=== PATIENT | female | born 1935 | race Hispanic/Latino ===

== ENCOUNTER 2017-09-11 19:35 | Observation (INO) | payer OTHER ==
[~2017-09-11] VITALS: Ht 157.5 cm; Wt 73.2 kg
[~2017-09-11 19:35] MED LIST: ALENDRONATE PO; AMLO1CAP6 PO; HYDR-2132 PO; METO100T14 PO
[2017-09-11] MEDS ORDERED: NITROGLYCERIN 0.4 MG SL TAB SL ONE (19:50)
[2017-09-11] MEDS ORDERED: ASPIRIN 81MG TAB.CHEW ONE (19:50)
[2017-09-11 19:54] LABS: BASOPHILS % (AUTO) 0.9 % (0.0-5.0); EOSINOPHILS % (AUTO) 2.4 % (0.0-8.0); HEMATOCRIT 41.4 % (36-48); LYMPHOCYTES % (AUTO) 41.7 % (21.0-51.0); MEAN CORPUSCULAR HEMOGLOBIN 29.9 pg (27.0-33.0); MEAN CORPUSCULAR HGB CONC 33.3 g/dL (32.0-36.0); MEAN CORPUSCULAR VOLUME 89.9 fL (79-99); MONOCYTES % (AUTO) 9.8 % (3.0-13.0); NEUTROPHILS % (AUTO) 45.2 % (40.0-77.0); PLATELET COUNT (AUTO) 246 K/uL (130-400); WHITE BLOOD COUNT (AUTO) 7.6 K/uL (4.8-10.8)
[2017-09-11 20:13] LABS: POTASSIUM 4.3 mmol/L (3.5-5.1)
[2017-09-11 20:18] LABS: ALBUMIN 3.9 g/dL (3.5-5.0); BILIRUBIN,TOTAL 0.3 mg/dL (0.2-1.0); TOTAL PROTEIN, SERUM 7.8 g/dL (6.0-8.3)
[2017-09-12 03:15] VITALS: BP 158/61
[2017-09-12] MEDS ORDERED: SIMVAST (03:33)
[2017-09-12] MEDS ORDERED: LIDOCAINE HCL-MPF 1% 2ML VIAL IJ PRN (04:00)
[2017-09-12] MEDS ORDERED: POTASSIUM CHLORIDE 10% ELIXIR 20 MEQ/15 ML UDCUP PO PRN ×2 (04:00)
[2017-09-12] MEDS ORDERED: LIDOCAINE HCL-MPF 1% 2ML VIAL IVP PRN (04:00)
[2017-09-12] MEDS ORDERED: POTASSIUM CHLORIDE 20MEQ/100ML 100 ML IV PRN ×2 (04:00)
[2017-09-12] MEDS ORDERED: POTASSIUM CHLORIDE 20 MEQ ERTAB PO PRN ×2 (04:00)
[2017-09-12] MEDS ORDERED: DEXTROSE 50%-WATER 50 ML DISP.SYRIN IV PRN (04:15)
[2017-09-12] MEDS ORDERED: ONDANSETRON HCL 4 MG/2 ML VIAL IVP PRN (04:15)
[2017-09-12] MEDS ORDERED: NITROGLYCERIN 0.4 MG SL TAB SL PRN (04:15)
[2017-09-12] MEDS ORDERED: CLONIDINE HCL 0.1 MG TABLET PO PRN (04:15)
[2017-09-12] MEDS ORDERED: LACTULOSE 20 GM/30 ML UDCUP PO PRN (04:15)
[2017-09-12] MEDS ORDERED: GLUCAGON 1MG KIT 1 MG ML IM PRN (04:15)
[2017-09-12] MEDS ORDERED: ACETAMINOPHEN 325 MG TAB PO PRN ×2 (04:15)
[2017-09-12 06:06] LABS: MEAN CORPUSCULAR HEMOGLOBIN 31.4 pg (27.0-33.0); MEAN CORPUSCULAR HGB CONC 35.2 g/dL (32.0-36.0); MEAN CORPUSCULAR VOLUME 89.2 fL (79-99); PLATELET COUNT (AUTO) 222 K/uL (130-400); RED BLOOD CELL COUNT(AUTO) 4.26 MIL/uL (4.00-5.50); WHITE BLOOD COUNT (AUTO) 6.8 K/uL (4.8-10.8)
[2017-09-12 06:37] LABS: CARBON DIOXIDE 27 mmol/L (21-32); CHLORIDE 104 mmol/L (101-111); CHOLESTEROL 146 mg/dL (<200); CREATINE KINASE MB < 0.5 ng/mL (0.5-3.6); CREATINE KINASE, TOTAL 31 U/L (21-232); CREATININE 0.8 mg/dL (0.5-1.5); GLOMERULAR FILTR. RATE CALC 73 mL/min (>60); GLUCOSE,RANDOM 96 mg/dL (70-105); HDL CHOLESTEROL 83 mg/dL (35-85); LDL DIRECT 68 mg/dL (0-99); MYOGLOBIN 38 ng/mL (10-92); POTASSIUM 4.1 mmol/L (3.5-5.1); SODIUM SERUM 139 mmol/L (136-145); TRIGLYCERIDES 67 mg/dL (30-200); TROPONIN I < 0.04 ng/mL (0.00-0.06); UREA NITROGEN, BLOOD 12 mg/dL (7-18)
[2017-09-12] MEDS ORDERED: INSULIN R PO SS1 SQ SCH (07:30)
[2017-09-12 08:08] VITALS: BP 125/67
[2017-09-12] MEDS ORDERED: ASPIRIN 325 MG TABLET PO SCH (09:00)
[2017-09-12] MEDS ORDERED: METOPROLOL TARTRATE 25 MG TAB PO SCH (09:00)
[2017-09-12] MEDS ORDERED: FAMOTIDINE 20MG TAB 20 MG TAB PO SCH (09:00)
== END 2017-09-12 12:10 | disposition home or self-care (01) ==
LOC: EDH 19:35 → EDHIP 23:30 → 4BH 09-12 02:15
PROVIDERS: ADMIT Internal Medicine; ATTEND Internal Medicine
DX: R07.89 Other chest pain (principal); I10 Essential (primary) hypertension; E78.5 Hyperlipidemia, unspecified; Z82.49 Family history of ischemic heart disease and other diseases of the circulatory system; Z96.619 Presence of unspecified artificial shoulder joint
CPT/HCPCS: 36415 ×2; 80048; 80053; 80061; 82550 ×2; 82553; 82948; 83874; 84484 ×3; 85025; 85027; 93005 ×2; 99285; G0378 ×13

== ENCOUNTER 2022-09-08 04:34 | Emergency (ER) | payer OTHER ==
[~2022-09-08 04:34] MED LIST changes: +SIMVAST
== END 2022-09-08 04:49 | disposition left against medical advice (07) ==
LOC: EDH 04:34
DX: R21 Rash and other nonspecific skin eruption (principal); Z53.21 Procedure and treatment not carried out due to patient leaving prior to being seen by health care provider

== ENCOUNTER → 2022-11-28 | Outpatient (CLI) | payer OTHER | END | disposition home or self-care (01) | LOC: RAH 09:42 | PROVIDERS: ATTEND Obstetrics & Gynecology | DX: Z12.31 Encounter for screening mammogram for malignant neoplasm of breast (principal) | CPT/HCPCS: 77067 ==

== ENCOUNTER 2024-02-06 21:50 | Inpatient (IN) | payer OTHER ==
[~2024-02-06] VITALS: Ht 157.5 cm; Wt 66.7 kg
[2024-02-06] MEDS: metoPROLOL tartRATE 1 MG/ML 5ML VIAL IV ONE (22:10)
[2024-02-06] MEDS: 0.9%NACL 1000ML 1,000 ML IV ONE ×2 (22:53→23:47)
[2024-02-06 23:00] LABS: BASOPHILS # (AUTO) 0.05 K/uL (0.00-0.20); BASOPHILS % (AUTO) 0.4 % (0.0-5.0); HEMATOCRIT 34.9 % (36-48); IMMATURE GRANULOCYTE ABSOLUTE 0.07 K/uL (0-1); LYMPHOCYTES # (AUTO) 0.8 K/uL (1.0-4.8); LYMPHOCYTES % (AUTO) 6.2 % (21.0-51.0); MEAN CORPUSCULAR HEMOGLOBIN 30.8 pg (27.0-33.0); MEAN CORPUSCULAR HGB CONC 33.8 g/dL (32.0-36.0); MEAN CORPUSCULAR VOLUME 91.1 fL (79-99); MONOCYTES # (AUTO) 1.3 K/uL (0.1-1.0); MONOCYTES % (AUTO) 9.6 % (3.0-13.0); NEUTROPHILS # (AUTO) 11.2 K/uL (1.8-7.7); NEUTROPHILS % (AUTO) 83.3 % (40.0-77.0); PLATELET COUNT (AUTO) 187 K/uL (130-400); RED BLOOD CELL COUNT(AUTO) 3.83 MIL/uL (4.00-5.50); RED CELL DISTRIBUTION WIDTH 13.7 % (11.0-15.5); WHITE BLOOD COUNT (AUTO) 13.5 K/uL (4.8-10.8)
[2024-02-06 23:14] LABS: INR 1.05 (0.85-1.15); PROTHROMBIN TIME 11.3 SEC (9.6-11.6)
[2024-02-06 23:15] LABS: PARTIAL THROMBOPLASTIN TIME 29.3 SEC (26.3-35.5)
[2024-02-06 23:26] LABS: B-TYPE NATRIURETIC PEPTIDE 236 pg/mL (0-100)
[2024-02-06 23:41] LABS: ALBUMIN 3.5 g/dL (3.5-5.0); BILIRUBIN,TOTAL 1.2 mg/dL (0.2-1.0); CREATININE 1.3 mg/dL (0.5-1.0); POTASSIUM 4.6 mmol/L (3.5-5.1); TOTAL PROTEIN, SERUM 6.5 g/dL (6.0-8.3)
[2024-02-07] VITALS (8 sets, daily range): BP systolic 99–144; BP diastolic 50–67; PULSE 77–110; RESP 18; TEMP 97.7–98.7; O2SAT 94–98
[2024-02-07] MEDS ORDERED: acetaMINOPHEN 325 MG TAB PO PRN ×2 (00:30)
[2024-02-07] MEDS ORDERED: MAG/ALUM/SIMETH 30 ML UDCUP PO PRN (00:30)
[2024-02-07] MEDS ORDERED: ondanSETRON 4MG INJ IV PRN (00:30)
[2024-02-07] MEDS ORDERED: NITROGLYCERIN 0.4 MG SL TAB SL PRN (00:30)
[2024-02-07] MEDS ORDERED: LACTULOSE 20 GM/30 ML UDCUP PO PRN (00:30)
[2024-02-07] MEDS ORDERED: guaiFENesin-DM 200/20MG 10ML PO PRN (00:30)
[2024-02-07] MEDS ORDERED: hydrALAZine 20MG/ML VIAL IV PRN (00:30)
[2024-02-07] MEDS: HEParin 5,000 UNIT VIAL SQ SCH ×2 (00:40→09:12)
[2024-02-07] MEDS: 0.9%NACL 1000ML 1,000 ML IV SCH (01:02)
[2024-02-07 01:12] LABS: ABG BASE EXCESS -6.2 mmol/L (-2.0-3.0); ABG HCO3 17.9 mmol/L (21.0-28.0); ABG OXYGEN SATURATION 96.9 % (94.0-98.0); ABG PCO2 32 mmHg (32-45); ABG PH 7.365 (7.350-7.450); PO2, ARTERIAL BG 92.5 mmHg (83.0-108.0); VENT MODE, BG NC (ROOM AIR)
[2024-02-07 01:43] LABS: APPEARANCE,URINE CLEAR (CLEAR); BILIRUBIN,URINE NEGATIVE (NEGATIVE); COLOR,URINE YELLOW (YELLOW); GLUCOSE, URINE (UA) NEGATIVE (NEGATIVE); KETONES,URINE 20 mg/dL (NEGATIVE); LEUKOCYTE ESTERASE ,URINE 25 Leu/uL (NEGATIVE); NITRATE,URINE NEGATIVE (NEGATIVE); OCCULT BLOOD,URINE MODERATE (NEGATIVE); PH,URINE 5.5 (5.0-8.0); PROTEIN,URINE 20 mg/dL (NEGATIVE); UROBILINOGEN,URINE 0.2 mg/dL (0.2-1.0)
[2024-02-07 01:46] LABS: ADD UA MICROSCOPIC YES
[2024-02-07 01:48] LABS: MUCUS,URINE RARE LPF (None Seen); SQUAMOUS EPITHELIAL CELL,UR RARE /HPF (0-2)
[2024-02-07 02:13] LABS: COVID19 (SARS ANTIGEN RAPID) PRESUMPTIVE NEGATIVE (NEGATIVE); INFLUENZA TYPE A Negative For Type A (NEGATIVE); INFLUENZA TYPE B Negative For Type B (NEGATIVE)
[2024-02-07] MEDS: CEFTRIAXONE 2GM VIAL IVPB SCH (02:21)
[2024-02-07] MEDS ORDERED: CEFTRIAXONE 2GM VIAL IVPB ONE (02:30)
[2024-02-07 06:47] LABS: AMPHET/METH SCREEN,URINE NEGATIVE (NEGATIVE); BARBITURATE SCREEN, URINE NEGATIVE (NEGATIVE); BENZODIAZEPINES SCREEN,URINE NEGATIVE (NEGATIVE); CANNABINOID SCREEN,URINE NEGATIVE (NEGATIVE); COCAINE SCREEN,URINE NEGATIVE (NEGATIVE); OPIATE SCREEN,URINE NEGATIVE (NEGATIVE); PHENCYCLIDINE SCREEN,URINE NEGATIVE (NEGATIVE)
[2024-02-07] MEDS ORDERED: AMLO-142 PO (08:53)
[2024-02-07] MEDS ORDERED: SIMV10TA97 PO (08:53)
[2024-02-07] MEDS: metoPROLOL tartRATE 25 MG TAB PO SCH (09:13)
[2024-02-07 09:33] LABS: BASOPHILS # (AUTO) 0.06 K/uL (0.00-0.20); BASOPHILS % (AUTO) 0.6 % (0.0-5.0); EOSINOPHILS # (AUTO) 0.01 K/uL (0.00-0.70); EOSINOPHILS % (AUTO) 0.1 % (0.0-8.0); HEMATOCRIT 31.6 % (36-48); IMMATURE GRANULOCYTE ABSOLUTE 0.08 K/uL (0-1); LYMPHOCYTES # (AUTO) 1.8 K/uL (1.0-4.8); LYMPHOCYTES % (AUTO) 17.3 % (21.0-51.0); MEAN CORPUSCULAR HEMOGLOBIN 30.4 pg (27.0-33.0); MEAN CORPUSCULAR HGB CONC 33.5 g/dL (32.0-36.0); MEAN CORPUSCULAR VOLUME 90.5 fL (79-99); MONOCYTES # (AUTO) 0.8 K/uL (0.1-1.0); MONOCYTES % (AUTO) 7.8 % (3.0-13.0); NEUTROPHILS # (AUTO) 7.7 K/uL (1.8-7.7); NEUTROPHILS % (AUTO) 73.4 % (40.0-77.0); PLATELET COUNT (AUTO) 198 K/uL (130-400); RED BLOOD CELL COUNT(AUTO) 3.49 MIL/uL (4.00-5.50); WHITE BLOOD COUNT (AUTO) 10.5 K/uL (4.8-10.8)
[2024-02-07 10:07] LABS: ALBUMIN 2.8 g/dL (3.5-5.0); BILIRUBIN,TOTAL 1.2 mg/dL (0.2-1.0); CREATININE 0.9 mg/dL (0.5-1.0); POTASSIUM 4.2 mmol/L (3.5-5.1)
[2024-02-08] VITALS (9 sets, daily range): BP systolic 127–146; BP diastolic 49–76; PULSE 69–85; RESP 16–18; TEMP 98.2–99.4; O2SAT 96
[2024-02-08 04:00] LABS: BASOPHILS # (AUTO) 0.07 K/uL (0.00-0.20); BASOPHILS % (AUTO) 0.8 % (0.0-5.0); EOSINOPHILS # (AUTO) 0.06 K/uL (0.00-0.70); EOSINOPHILS % (AUTO) 0.7 % (0.0-8.0); HEMATOCRIT 30.4 % (36-48); IMMATURE GRANULOCYTE ABSOLUTE 0.06 K/uL (0-1); LYMPHOCYTES # (AUTO) 2.2 K/uL (1.0-4.8); MEAN CORPUSCULAR HEMOGLOBIN 30.9 pg (27.0-33.0); MEAN CORPUSCULAR HGB CONC 33.2 g/dL (32.0-36.0); MONOCYTES # (AUTO) 0.8 K/uL (0.1-1.0); MONOCYTES % (AUTO) 10.2 % (3.0-13.0); NEUTROPHILS % (AUTO) 60.6 % (40.0-77.0); PLATELET COUNT (AUTO) 165 K/uL (130-400); RED BLOOD CELL COUNT(AUTO) 3.27 MIL/uL (4.00-5.50); RED CELL DISTRIBUTION WIDTH 13.9 % (11.0-15.5); WHITE BLOOD COUNT (AUTO) 8.3 K/uL (4.8-10.8)
[2024-02-08 04:32] LABS: CREATININE 0.8 mg/dL (0.5-1.0); MAGNESIUM 1.8 mg/dL (1.80-2.40); POTASSIUM 3.8 mmol/L (3.5-5.1)
[2024-02-08] MEDS ORDERED: PHARMACY COMMUNICATION MISC SCH (05:00)
[2024-02-08] MEDS: MAGNESIUM 2GM PREMIX 50ML 50 ML IV ONE (05:19)
[2024-02-08] MEDS: metoPROLOL tartRATE 50 MG TAB PO SCH (08:36)
[2024-02-08] MEDS: PHENAZOpyridine HCL 200 MG TAB 200 MG TABLET PO PRN (19:53)
[2024-02-09] VITALS (8 sets, daily range): BP systolic 136–151; BP diastolic 52–65; PULSE 75–84; RESP 16–18; TEMP 98.3–99.1; O2SAT 96–97
[2024-02-09 04:38] LABS: BASOPHILS # (AUTO) 0.05 K/uL (0.00-0.20); BASOPHILS % (AUTO) 0.7 % (0.0-5.0); EOSINOPHILS # (AUTO) 0.13 K/uL (0.00-0.70); EOSINOPHILS % (AUTO) 1.9 % (0.0-8.0); HEMATOCRIT 30.1 % (36-48); IMMATURE GRANULOCYTE ABSOLUTE 0.09 K/uL (0-1); LYMPHOCYTES # (AUTO) 2.4 K/uL (1.0-4.8); LYMPHOCYTES % (AUTO) 34.5 % (21.0-51.0); MEAN CORPUSCULAR HEMOGLOBIN 30.1 pg (27.0-33.0); MEAN CORPUSCULAR HGB CONC 33.6 g/dL (32.0-36.0); MEAN CORPUSCULAR VOLUME 89.9 fL (79-99); MONOCYTES # (AUTO) 0.7 K/uL (0.1-1.0); MONOCYTES % (AUTO) 9.6 % (3.0-13.0); NEUTROPHILS # (AUTO) 3.7 K/uL (1.8-7.7); PLATELET COUNT (AUTO) 206 K/uL (130-400); RED BLOOD CELL COUNT(AUTO) 3.35 MIL/uL (4.00-5.50); RED CELL DISTRIBUTION WIDTH 13.5 % (11.0-15.5)
[2024-02-09 05:12] LABS: CREATININE 0.8 mg/dL (0.5-1.0); POTASSIUM 3.4 mmol/L (3.5-5.1)
[2024-02-09] MEDS ORDERED: PoTASSium chloRIDE 20MEQ/100ML 100 ML IV PRN (19:00)
[2024-02-09] MEDS: PoTASSium chloRIDE 20MEQ ER 20 MEQ ERTAB PO PRN (21:23)
[2024-02-09] MEDS: MAGNESIUM 2GM PREMIX 50ML 50 ML IV PRN (21:23)
[2024-02-09] MEDS: BALSAM PERU/CASTOR OIL 60 GM TUBE TP SCH (21:59)
[2024-02-10] VITALS (8 sets, daily range): BP systolic 126–157; BP diastolic 44–75; PULSE 70–91; RESP 16–20; TEMP 98–98.9; O2SAT 94–96
[2024-02-10 05:16] LABS: HEMATOCRIT 32.3 % (36-48); MEAN CORPUSCULAR HEMOGLOBIN 30.6 pg (27.0-33.0); MEAN CORPUSCULAR HGB CONC 34.1 g/dL (32.0-36.0); MEAN CORPUSCULAR VOLUME 89.7 fL (79-99); RED BLOOD CELL COUNT(AUTO) 3.6 MIL/uL (4.00-5.50); RED CELL DISTRIBUTION WIDTH 13.5 % (11.0-15.5); WHITE BLOOD COUNT (AUTO) 6.4 K/uL (4.8-10.8)
[2024-02-10 06:02] LABS: CREATININE 0.8 mg/dL (0.5-1.0); POTASSIUM 3.6 mmol/L (3.5-5.1)
[2024-02-10] MEDS: PoTASSium chl 10% ELIXIR 20MEQ 20 MEQ/15 ML UDCUP PO PRN (06:15)
[2024-02-11] VITALS: BP 139/68; PULSE 85; RESP 20; TEMP 98
[2024-02-11 04:00] VITALS: BP 142/64; PULSE 87; RESP 20; TEMP 98.8
[2024-02-11 05:12] LABS: BASOPHILS # (AUTO) 0.06 K/uL (0.00-0.20); BASOPHILS % (AUTO) 0.9 % (0.0-5.0); EOSINOPHILS # (AUTO) 0.24 K/uL (0.00-0.70); EOSINOPHILS % (AUTO) 3.6 % (0.0-8.0); IMMATURE GRANULOCYTE ABSOLUTE 0.15 K/uL (0-1); LYMPHOCYTES # (AUTO) 2.5 K/uL (1.0-4.8); LYMPHOCYTES % (AUTO) 37.2 % (21.0-51.0); MEAN CORPUSCULAR HGB CONC 33.3 g/dL (32.0-36.0); MEAN CORPUSCULAR VOLUME 89.9 fL (79-99); MONOCYTES # (AUTO) 0.7 K/uL (0.1-1.0); MONOCYTES % (AUTO) 10.1 % (3.0-13.0); NEUTROPHILS % (AUTO) 45.9 % (40.0-77.0); PLATELET COUNT (AUTO) 241 K/uL (130-400); RED BLOOD CELL COUNT(AUTO) 3.67 MIL/uL (4.00-5.50); RED CELL DISTRIBUTION WIDTH 13.8 % (11.0-15.5); WHITE BLOOD COUNT (AUTO) 6.6 K/uL (4.8-10.8)
[2024-02-11 05:29] LABS: CREATININE 0.9 mg/dL (0.5-1.0); POTASSIUM 3.9 mmol/L (3.5-5.1)
[2024-02-11 08:52] VITALS: BP 125/66; PULSE 86; RESP 17; TEMP 98.2
[2024-02-11 09:30] VITALS: O2SAT 96
[2024-02-11 11:56] VITALS: BP 130/58; PULSE 67; RESP 18; TEMP 98.4
== END 2024-02-11 16:30 | DRG 871 ==
LOC: EDH 21:50 → EDHIP 02-07 00:30 → OBSVTOIN 02-07 00:30 → 2DH 02-07 02:27 → 3CH 02-09 18:45
PROVIDERS: ADMIT Internal Medicine Pulmonary Disease; ATTEND Internal Medicine Pulmonary Disease
DX: A41.9 Sepsis, unspecified organism (principal); N17.0 Acute kidney failure with tubular necrosis; I47.10 Supraventricular tachycardia, unspecified; M62.82 Rhabdomyolysis; N30.00 Acute cystitis without hematuria; N18.30 Chronic kidney disease, stage 3 unspecified; I12.9 Hypertensive chronic kidney disease with stage 1 through stage 4 chronic kidney disease, or unspecified chronic kidney disease; I48.91 Unspecified atrial fibrillation; E86.0 Dehydration; E78.00 Pure hypercholesterolemia, unspecified; Z88.8 Allergy status to other drugs, medicaments and biological substances
CPT/HCPCS: 36415; 36600; 70450; 71045; 71250; 72125; 73501; 74176; 80048; 80053; 80305; 81001; 82140; 82550; 82803; 82948; 83605; 83735; 83880; 84145; 84443; 84484; 85025; 85027; 85610; 85730; 87040; 87426; 87804; 93005; 96361; 96374; G0378; J0696; J1644; J3475; J3490

== ENCOUNTER → 2024-05-13 | Outpatient (CLI) | payer OTHER ==
[~2024-05-13] MED LIST changes: -ALENDRONATE PO; +AMLO-142 PO; -AMLO1CAP6 PO; -HYDR-2132 PO; +SIMV10TA97 PO; -SIMVAST
--- NOTE | 2024-05-16 13:15 | HMCSR ---
APPROVED REPORT EXAM: Two-dimensional and M-mode echocardiogram with Doppler and color Doppler. INDICATION ICD: I48.0 Paroxysmal Atrial Fibrillation 2D Dimensions RVDd3.3 cmLVEF(%)59.9 (>50%)LVED Vol(simp.)65.0 mL IVSd0.8 (0.7-1.1cm)FS(%)32 %LVES Vol(simp.)24.0 mL LVDd4.3 (3.8-5.6cm)Ao Root(2D)2.6 (2.0-3.7cm)LVEF(%, simp.)62 % PWd0.9 (0.7-1.1cm)LVOT diam1.7 (1.8-2.4cm)LA ESV INDEX (BP)38.48 mL/m2 LVDs2.9 (2.5-4.0cm)IVC diam1.3 cm Aortic Valve AoV Vmax1.4 m/Peri Peak GR7.4 mmHgLVOT Vmax1.1 m/s AoV VTI0.4 mAo Mean GR4.1 mmHgLVOT VTI0.29 m RYLIE (VMAX)1.9 cm2AVA (VTI) 1.9 cm2 Mitral Valve MV E Pjwh211.0 cm/sDECEL Sezu731 ms MV A Uelc334.5 cm/sP 1/2 T55 ms E/A ratio1.0MVA (PHT)4.0 cm2 MR Max PG107 mmHg TDI E/E' Unkrgt81.4E/E' Ukyzlps53.4 Pulmonary Valve PV Vmax0.9 m/sPV VTI0.24 mPV Mean GR2 mmHg PV Peak GR3.2 mmHgPI End Sandra. Alpesh 1.0 cm/s Tricuspid Valve TR Vmax2.7 m/sRAP (EST) 3 bcUyUCKV91.3 mmHg TR Peak GR29.3 mmHg Left Ventricle The left ventricle structure and function is normal. There is normal LV segmental wall motion. There is normal left ventricular wall thickness. LVEF is 60-65%. Grade 2 diastolic dysfunction. Right Ventricle The right ventricle is normal size. The right ventricular systolic function is normal. Atria The left atrium is mildly dilated. The right atrium size is normal. Aortic Valve Aortic valve is trileaflet. Aortic valve leaflets are sclerotic but open well. No aortic regurgitatio n is present. There is no aortic valvular stenosis. Mitral Valve Mitral valve leaflets are mildly sclerotic but open well. Mitral regurgitation is trace to mild. Ther e is no mitral valve stenosis. Tricuspid Valve The tricuspid valve leaflets appear normal. There is trace to mild tricuspid regurgitation. Right sally tricular systolic pressure is estimated at 30-40 mmHg. Pulmonic Valve Pulmonic valve is not well visualized. There is trace pulmonic valvular regurgitation. Great Vessels The aortic root is normal in size. The IVC is normal in size and collapses >50% with inspiration. Pericardium No pericardial effusion. Conclusion LVEF is 60-65%. Grade 2 diastolic dysfunction. Mitral regurgitation is trace to mild. There is trace to mild tricuspid regurgitation. Right ventricular systolic pressure is estimated at 30-40 mmHg.
== END | disposition home or self-care (01) ==
LOC: SHCH 11:02
PROVIDERS: ATTEND Internal Medicine Cardiovascular Disease
DX: I08.3 Combined rheumatic disorders of mitral, aortic and tricuspid valves (principal); I48.0 Paroxysmal atrial fibrillation
CPT/HCPCS: 93306

== ENCOUNTER 2024-09-29 22:02 | Emergency (ER) | payer OTHER ==
[~2024-09-29] VITALS: Ht 152.4 cm; Wt 68.0 kg
--- NOTE | 2024-09-29 23:19 | NUR ---
PATIENT REFUSED ELBOW X RAY.
[2024-09-29] MEDS ORDERED: CEPH500B PO (23:50)
--- NOTE | 2024-09-29 23:51 | ERN ---
ED Note History of Present Illness Stated Complaint: FALL , RT ELBOW LACERATION/SKIN TEAR Chief Complaint: Mechanical Fall Time Seen by MD: 22:05 Time Seen by Midlevel: 22:05 Dictation: The patient is an 89-year-old female with a history of hypertension, who presents to the emergency department with complaints of right elbow injury onset an hour ago after she accidentally slipped in fell on her tile. Patient denies any LOC, denies head injury, denies use of blood thinners. Patient denies any back pain, neck pain, headache, chest abdomen injury, denies any other extremity injury. Patient reports that she is up-to-date with her tetanus Allergies: Coded Allergies: esomeprazole (Unverified Allergy, Unknown, SWELLING TO FACE, EARS, TONGUE, 09/18/15) Home Meds Reported Medications Amlodipine Besylate/Benazepril (Amlodipine-Benazepril 10-40 mg) 10 Mg-40 Mg Capsule, 1 EACH PO DAILY, CAP 02/07/24 Simvastatin (Simvastatin) 10 Mg Tablet, 10 MG PO HS, TAB 02/07/24 Metoprolol Tartrate (Metoprolol Tartrate) 100 Mg Tablet, 100 MG PO DAILY, TAB 09/18/15 Past Medical History Past Medical History: High Cholesterol, Hypertension Surgical History: Unknown RN Note Reviewed/Agreed w/PFSH: Yes Review of System Dictation Constitutional: Negative for fever,chills, and weight loss Eyes: Negative for injury, pain,redness, and discharge ENT: Negative for injury,pain or swelling Cardiovascular: Negative for chest pain, palpitations, and edema Respiratory: Negative for shortness of breath, cough, and wheezing, Abdomen/GI: Negative for abdominal pain, nausea, vomiting, diarrhea, and con stipation Back: Negative for injury and pain : Negative for injury, bleeding and discharge MS/Extremity positive for right elbow injury Skin: Positive for right elbow skin tear Neuro: Negative for headache, weakness, numbness, tingling, and seizure Psych: Negative for suicide ideation, homicidal ideation, and hallucinations Initial Vital Sign VS Vital Signs Date Time Temp Pulse Resp B/P (MAP) Pulse Ox O2 Delivery O2 Flow Rate FiO2 09/29/24 22:03 98.1 60 16 126/6 98 Room Air Physical Exam Dictation Vital Signs reviewed General Appearance: Alert, oriented x 3, no acute distress, well developed, nourished. Head and Face: non-traumatic. Eyes: PERRL, pink conjunctivas, eyelid no trauma, anterior chamber with arcus senilis. Ears: Pinnas intact and no signs of trauma or erythema ear canals clear and no discharge TM no erythema Nose: No discharge, no bleeding. Oropharynx: Mouth normal, tongue pink. pharynx clear,no erythema, tonsils no exudates, no abscesses noted, mucous membrane moist Neck: Supple, non-tender, no thyromegaly, no masses, no JVD, no bruits Breast:Deferred Chest:No tenderness, no crepitus, no paradoxical movement, no retractions Lungs:Clear, well-ventilated, symmetric, no rales, no wheezing, no rhonchi, no stridor, good breath sounds bilaterally Heart: Regular rate, regular rhythm, no murmur, no gallops Vascular: no peripheral edema, Abdomen: Soft, positive bowel sounds, nondistended, no guarding, nontender, no rebound, no masses no hepatomegaly, no splenomegaly, no Gonzalez's sign, no hernias. Rectal: Deferred Genital: Deferred Neurological: Normal speech, motor function intact, sensory function intact Musculoskeletal: Neck nontender, full range of motion, back nontender, full range of motion, Extremities: nontender, full range of motion Skin: Color pink, dry, no turgor, no rash, no lacerations, no contusions.3 cm superficial skin tear to right elbow, no active bleeding Lymphatic: Deferred Results (Laboratory/Radiology) Labs Reviewed?: Yes ED Course ED Course Orders Procedure Category Date Status Time Acetaminophen 325 Tab PHA 09/29/24 Complete (Tylenol 325mg Tab 22:30 Neomy PHA 09/29/24 Complete Sulf/Bacitra/Polymyxin 22:30 Current Medications Medications (Trade) Dose Ordered Sig/Rowdy Route PRN Reason Start Time Stop Time Status Last Admin Dose Admin Acetaminophen (TYLenol 325MG TAB) 650 mg ONCE ONCE PO 09/29/24 22:30 09/29/24 22:31 DC Neomycin/ Polymyxin/ Bacitracin (Triple Antibiotic Ointment) 1 appl ONCE ONCE TP 09/29/24 22:30 09/29/24 22:31 DC Vital Signs Date Time Temp Pulse Resp B/P (MAP) Pulse Ox O2 Delivery O2 Flow Rate FiO2 09/29/24 22:03 98.1 60 16 126/6 98 Room Air Medical Decision Making MDM The patient is an 89-year-old female with a history of hypertension, who presents to the emergency department with complaints of right elbow injury onset an hour ago after she accidentally slipped in fell on her tile. Patient denies any LOC, denies head injury, denies use of blood thinners. Patient denies any back pain, neck pain, headache, chest abdomen injury, denies any other extremity injury. Patient reports that she is up-to-date with her tetanus Patient with 3 cm superficial skin tear to right elbow. Wound was cleaned. No need for repair at this time. Patient with a full range of motion to elbow. Neurovascularly intact. Patient refused elbow x-ray. Risks and benefits discussed with the patient who continues to refused. Patient neurologically intact. Ambulatory. No other obvious injuries noted. Patient will be discharged to follow up with PCP. Differential diagnosis: Abrasion, laceration, elbow contusion, elbow fracture Need for hospitalization: Patient does not meet criteria for hospitalization. There are no social concerns with this patient. DX & DISP Disposition: Discharge Departure Impression: Primary Impression: Ground-level fall Additional Impressions: Skin tear, Contusion of elbow, right Condition: Stable Scripts Cephalexin Monohydrate (Keflex) 500 Mg Cap 500 MG PO QID for 5 Days, #20 CAP Prov: ARACELI LANDIN LEATHERSMITH 09/29/24 Additional Instructions: Please follow up with your primary doctor in 1-2 days. If he develops severe headache, nausea or vomiting or symptoms worsen please return to ER. Keep your wound clean and dry. Do not put your wound under water, such as in a bath, pool, or santoro. This can slow healing and raise your chance of getting an infection. You should call your doctor if you develop any fever, redness or swelling around the cut, or pus draining from the cut. FOLLOW-UP WITH PRIMARY CARE PROVIDER IN 1 TO 2 DAYS. TAKE MEDICATIONS DIRECTED HERE IN THE EMERGENCY ROOM. OKAY TO CONTINUE HOME MEDICATIONS UNLESS O THERWISE DISCUSSED DURING YOUR VISIT IN THE EMERGENCY ROOM TODAY. RETURN TO YOUR NEAREST EMERGENCY ROOM IF SYMPTOMS WORSEN OR IF THERE IS NO IMPROVEMENT. CALL 911 IF YOU NEED IMMEDIATE ASSISTANCE. TAKE TYLENOL OR MOTRIN [id number] NEEDED AND IF NO CONTRAINDICATIONS ARE PRESENT. INCREASE ORAL HYDRATION. A WOUND CULTURE OR URINE CULTURE WAS ORDERED HERE IN THE EMERGENCY ROOM DEPARTMENT PLEASE FOLLOW-UP WITH PRIMARY CARE PROVIDER AND ADVISE THEM TO GET REPEAT PORTS FROM OUR FACILITY. IF YOU HAD ANY [place] WRAP/SPLINTS THAT WERE APPLIED HERE, PLEASE DO NOT REMOVE THEM UNTIL YOU SEE YOUR PRIMARY CARE OR SPECIALTY. Referrals: USN HART MD (PCP) Time of Disposition: 23:49 I have reviewed the case, and I agree with, Diagnosis and Plan ARACELI LANDIN LEATHERSMITH September 29, 2024 23:51
[2024-09-29] MEDS: acetaMINOPHEN 325 MG TAB PO ONE (23:56)
[2024-09-29] MEDS: NEOMY SULF/BACITRA/POLYMYXIN B 1 EACH PACKET TP ONE (23:57)
[2024-09-30 00:09] VITALS: BP 124/78; PULSE 80; RESP 18; TEMP 98.4; O2SAT 98
== END 2024-09-30 00:13 | disposition home or self-care (01) ==
LOC: EDH 22:02
DX: S51.011A Laceration without foreign body of right elbow, initial encounter (principal); E78.00 Pure hypercholesterolemia, unspecified; I10 Essential (primary) hypertension; Z79.899 Other long term (current) drug therapy; W01.0XXA Fall on same level from slipping, tripping and stumbling without subsequent striking against object, initial encounter; Y93.89 Activity, other specified; Y92.89 Other specified places as the place of occurrence of the external cause; Y99.8 Other external cause status
CPT/HCPCS: 99283